=== PATIENT | female | born 1995 ===

== ENCOUNTER 2018-05-27 18:36 | Emergency (ER) | payer SELFPAY ==
--- NOTE | 2018-05-27 19:25 | RAD ---
RIGHT ANKLE THREE VIEWS: HISTORY: Swelling. TECHNIQUE: AP, lateral, and oblique views of the right ankle are obtained. FINDINGS: Three views of the right ankle demonstrate no evidence of right ankle fractures, subluxations, or bon y lesions. Edema is seen lateral to the right ankle. IMPRESSION: No evidence of acute right ankle fractures or bony lesions. POS: [facility]
== END 2018-05-27 19:44 | disposition home or self-care (01) ==
LOC: ERS 18:36
DX: S93.401A Sprain of unspecified ligament of right ankle, initial encounter (principal); D64.9 Anemia, unspecified; F41.9 Anxiety disorder, unspecified; F32.9 Major depressive disorder, single episode, unspecified; F17.290 Nicotine dependence, other tobacco product, uncomplicated; X50.9XXA Other and unspecified overexertion or strenuous movements or postures, initial encounter

== ENCOUNTER 2021-09-21 09:44 | Outpatient (CLI) | payer BC ==
[2021-09-21 12:39] LABS: #Eosinphils 0.2 10x3/uL (0.0-0.5); #Monocytes 0.5 10x3/uL (0.0-1.1); %Basophils 0.5 % (0.0-2.0); %Eosinophils 2.5 % (0.0-6.0); %Lymphocytes 30.9 % (18.0-47.0); %Monocytes 6.5 % (0.0-10.0); %Neutrophils 59.4 % (40.0-75.0); Hemoglobin 8.5 g/dL (12.0-15.5); Mean Corpuscular HGB CONC 30.6 g/dL (32.0-36.0); Mean Corpuscular Hemoglobin 22.1 pg (27.0-33.0); Mean Corpuscular Volume 72.4 fl (81.6-98.3); Platelet Count 474 10x3/uL (150-450); RBC Distribution Width 17.8 % (11.5-14.5); Red Blood Cell (RBC) Count 3.84 10x6/uL (3.90-5.03); White Blood Cell (WBC) Count 8.4 10x3/uL (3.5-10.5)
[2021-09-21 13:00] LABS: BHCG - Serum Negative (NEGATIVE); Pregs Control Background? CLEAR/WHITE (CLR/WHITE); Pregs Control Bar Appear? YES (CONTROL BAR)
[2021-09-21 13:02] LABS: ALT (SGPT) 30 U/L (8-55); AST (SGOT) 23 U/L (5-34); Albumin 3.8 g/dL (3.5-5.0); Alkaline Phosphatase 117 U/L (40-110); Anion Gap 17 mmol/L (10-20); BUN (Urea Nitrogen) 17 mg/dL (7.0-18.7); Bilirubin, Direct 0.3 mg/dL (0.1-0.3); Bilirubin, Total 0.5 mg/dL (0.2-1.2); Calc. Creatinine Clearance 0 mL/min (70-130); Calcium 8.9 mg/dL (7.8-10.44); Carbon Dioxide 23 mmol/L (22-29); Chloride 107 mmol/L (98-107); Estimated GFR 89; Globulin 3.5 g/dL (2.4-3.5); Glucose 64 mg/dL (70-105); Potassium 4.4 mmol/L (3.5-5.1); Protein, Total 7.3 g/dL (6.0-8.3); Sodium 143 mmol/L (136-145)
== END 2021-09-21 09:45 | disposition home or self-care (01) ==
LOC: LABBT 09:44
PROVIDERS: ATTEND Surgery
DX: Z01.812 Encounter for preprocedural laboratory examination (principal); K80.20 Calculus of gallbladder without cholecystitis without obstruction; Z20.822 Contact with and (suspected) exposure to COVID-19
CPT/HCPCS: 80053; 80076; 84703; 85025; 87811

== ENCOUNTER 2021-09-24 11:53 | Day surgery (SDC) | payer BC ==
[2021-09-23 09:29] VITALS: BMI 25.0
[2021-09-24] MEDS ORDERED: Bupivacaine 0.25% HCL 30 ML VIAL ONE (11:59)
[2021-09-24] MEDS ORDERED: Lidocaine 1% w/Epinephrine 1:100K 20 ML VIAL ONE (11:59)
[2021-09-24] MEDS ORDERED: cefOXitin 2 GM VIAL ONE (12:25)
[2021-09-24] MEDS ORDERED: Sodium Chloride 0.9% 100 ML ONE (12:25)
[2021-09-24] MEDS ORDERED: Midazolam HCl 2 mg/2 ml Vial ONE ×2 (12:29→12:43)
[2021-09-24] MEDS ORDERED: Fentanyl 100 MCG/2 ML VIAL ONE (12:42)
[2021-09-24] MEDS ORDERED: Dexmedetomidine 200 MCG/2 ML VIAL ONE (12:50)
[2021-09-24] MEDS ORDERED: PROPOFOL 200 MG/20 ML VIAL ONE (12:53)
[2021-09-24] MEDS ORDERED: Dexamethasone 20 MG/5 ML VIAL ONE (12:53)
[2021-09-24] MEDS ORDERED: Rocuronium Bromide 10 MG/ML (10ML VIAL) ONE (12:53)
[2021-09-24] MEDS ORDERED: Lidocaine 1% PF 5 ML VIAL ONE (12:53)
[2021-09-24] MEDS ORDERED: Ketorolac Tromethamine 30 MG/ML VIAL ONE (12:53)
[2021-09-24] MEDS ORDERED: ePHEDrine 50 MG/ML VIAL ONE (12:53)
[2021-09-24] MEDS ORDERED: Glycopyrrolate 0.2 MG/ML 5 ML SYRINGE ONE (12:53)
[2021-09-24] MEDS ORDERED: Ondansetron PF 4 MG/2 ML Vial ONE (12:53)
[2021-09-24] MEDS ORDERED: HYDROcodone/Acetaminophen 5/325 mg Tablet ONE (16:49)
== END 2021-09-24 18:29 | disposition home or self-care (01) ==
LOC: SDC 11:53
PROVIDERS: ATTEND Surgery
PROC: 0FT44ZZ Resection of Gallbladder, Percutaneous Endoscopic Approach (ICD-10-PCS; principal; 2021-09-24)
DX: K80.00 Calculus of gallbladder with acute cholecystitis without obstruction (principal); K82.8 Other specified diseases of gallbladder; Z87.891 Personal history of nicotine dependence; Z79.899 Other long term (current) drug therapy
CPT/HCPCS: 87070; 87205; 88304; C1713; J0694; J1100; J1885; J2250; J2405; J2704; J3010; J3490; S0020

== ENCOUNTER 2023-10-17 18:10 | Emergency (ER) | payer BC | END 2023-10-17 18:50 | disposition left against medical advice (07) | LOC: ERS 18:10 | DX: Z53.21 Procedure and treatment not carried out due to patient leaving prior to being seen by health care provider (principal) ==